=== PATIENT | male | born 1960 | race Caucasian/White ===

== ENCOUNTER 2017-04-21 21:23 | Emergency (ER) | payer SELFPAY ==
[~2017-04-21] VITALS: Ht 167.6 cm; Wt 86.6 kg
[2017-04-21 21:27] VITALS: BP 142/94
== END 2017-04-21 22:10 | disposition home or self-care (01) ==
LOC: ED 21:48
DX: F32.9 Major depressive disorder, single episode, unspecified (principal)
CPT/HCPCS: 99284

== ENCOUNTER 2017-07-19 02:01 | Emergency (ER) | payer SELFPAY ==
[~2017-07-19] VITALS: Ht 167.6 cm; Wt 88.2 kg
[2017-07-19 02:34] VITALS: BP 131/74
== END 2017-07-19 02:36 | disposition home or self-care (01) ==
LOC: ED 02:22
DX: J20.8 Acute bronchitis due to other specified organisms (principal)
CPT/HCPCS: 99283

== ENCOUNTER 2018-07-19 14:41 | Emergency (ER) | payer MEDICAID ==
[~2018-07-19] VITALS: Ht 170.2 cm; Wt 81.6 kg
[~2018-07-19 14:41] MED LIST: NAPR-685 PO
[2018-07-19 14:47] VITALS: BP 126/95
== END 2018-07-19 15:57 | disposition home or self-care (01) ==
LOC: ED 14:56
DX: J06.9 Acute upper respiratory infection, unspecified (principal); Z87.891 Personal history of nicotine dependence
CPT/HCPCS: 71046; 99283

== ENCOUNTER 2018-11-14 19:14 | Emergency (ER) | payer MEDICAID ==
[~2018-11-14] VITALS: Ht 167.6 cm; Wt 76.6 kg
[2018-11-14 19:18] VITALS: BP 129/84
--- NOTE | 2018-11-14 19:42 | NUR ---
pt to room with c/o redness to right eye, rigth inner eye red, pt states he did not feel any irritation till he looked in mirror
[2018-11-14] MEDS ORDERED: FLUORESCEIN OPHTHALMIC 1 MG STRIP ONE (20:01)
== END 2018-11-14 20:42 | disposition home or self-care (01) ==
LOC: ED 20:15
DX: H11.31 Conjunctival hemorrhage, right eye (principal); F32.9 Major depressive disorder, single episode, unspecified
CPT/HCPCS: 99281; 99282

== ENCOUNTER 2018-11-20 08:57 | Inpatient (IN) | payer MEDICAID ==
[~2018-11-20] VITALS: Ht 170.2 cm; Wt 78.4 kg
[2018-11-20] MEDS ORDERED: CLINDAMYCIN PMX 600MG/50ML 50 ML IVPB ONE (09:30)
[2018-11-20] MEDS ORDERED: SODIUM CHLORIDE FLUSH 10ML SYR IVF ONE (09:30)
[2018-11-20] MEDS ORDERED: CLINDAMYCIN PMX 600MG/50ML 50 ML ONE (09:49)
[2018-11-20 10:05] LABS: MEAN CORPUSCULAR HEMOGLOBIN 29.8 pg (27.5-34.5); MEAN CORPUSCULAR HGB CONC 34.1 g/dL (33.2-36.2); MEAN CORPUSCULAR VOLUME 87.3 fL (81-97); MEAN PLATELET VOLUME 7.8 fL (7.4-10.4); PLATELET COUNT 285 x10^3/uL (130-400); RED BLOOD COUNT 4.62 x10^6/uL (4.38-5.82); RED CELL DISTRIBUTION WIDTH 15.2 % (9.4-14.8)
[2018-11-20 10:17] LABS: ALBUMIN 3.6 g/dL (3.4-5.0); ANION GAP 8 mmol/L (5-15); CALCIUM 8.3 mg/dL (8.5-10.1); CHLORIDE 107 mmol/L (98-107)
[2018-11-20 10:21] LABS: ALANINE AMINOTRANSFERASE 23 U/L (12-78); ALKALINE PHOSPHATASE 90 U/L (45-117); BILIRUBIN,TOTAL 0.8 mg/dL (0.2-1.0); CREATININE 0.89 mg/dL (0.7-1.3); TOTAL PROTEIN 7.4 g/dL (6.4-8.2)
[2018-11-20 10:28] LABS: BASOPHILS # (AUTO) 0.06 x10^3/uL (0-0.1); BASOPHILS % (AUTO) 0 % (0-1); EOSINOPHILS # (AUTO) 0.03 x10^3/uL (0-0.4); EOSINOPHILS % (AUTO) 0 % (1-7); LYMPHOCYTES % (AUTO) 7 % (22-44); MD SCAN; MONOCYTES # (AUTO) 0.87 x10^3/uL (0.2-0.8); MONOCYTES % (AUTO) 4 % (2-9); NEUTROPHILS # (AUTO) 17.79 x10^3/uL (1.8-6.8); NEUTROPHILS % (AUTO) 88 % (42-75)
[2018-11-20] MEDS ORDERED: LIDOCAINE-MPF 1%, 5ML INFIL ONE (10:30)
[2018-11-20] MEDS ORDERED: LIDOCAINE-MPF 1%, 5ML ONE (10:48)
[2018-11-20] MEDS ORDERED: SODIUM CHLORIDE FLUSH 10ML SYR IVF PRN (11:00)
--- NOTE | 2018-11-20 12:00 | NUR ---
Sbar report over phone to cruz alcaraz.
[2018-11-20 13:36] VITALS: BP 125/84
[2018-11-20] MEDS ORDERED: ACETAMINOPHEN 325 MG TABLET PO PRN (14:00)
[2018-11-20] MEDS ORDERED: GABAPENTIN 300 MG CAPSULE PO PRN (14:00)
[2018-11-20] MEDS ORDERED: ONDANSETRON 2MG/ML, 2ML IVPush PRN (14:00)
[2018-11-20] MEDS ORDERED: LABETALOL 5MG/ML, 20ML IVPush PRN (14:00)
[2018-11-20] MEDS ORDERED: morphine SULFATE 10 MG/ML, 1ML IVPush PRN (14:00)
[2018-11-20] MEDS: SODIUM CHLORIDE 0.9% 1,000 ML IV SCH ×6 (14:00→23:00)
[2018-11-20 14:07] LABS: HCT (SEDRATE) 39.7 % (39.2-51.8)
[2018-11-20 14:53] LABS: HEMOGLOBIN A1C 5.7 % (4.2-6.3)
[2018-11-20] MEDS: AMPICILLIN/SULBACTAM 1,500 MG in SODIUM CHLORIDE 0.9% 50 ML IV SCH ×2 (15:10→21:54)
[2018-11-20] MEDS: ENOXAPARIN 40 MG/0.4 ML SQ SCH (15:23)
[2018-11-20] MEDS: DOXYCYCLINE 100 MG in DEXTROSE 5% 250 ML IV SCH (15:23)
[2018-11-20 18:40] VITALS: BP 117/80
[2018-11-20 21:55] VITALS: BP 119/74
[2018-11-21 01:01] VITALS: BP_SYST 132; BP_SYST 32; BP_DIAS 81
[2018-11-21] MEDS: AMPICILLIN/SULBACTAM 1,500 MG in SODIUM CHLORIDE 0.9% 50 ML IV SCH ×4 (03:14→20:54)
[2018-11-21] MEDS: SODIUM CHLORIDE 0.9% 1,000 ML IV SCH ×3 (03:15→20:55)
[2018-11-21] MEDS: DOXYCYCLINE 100 MG in DEXTROSE 5% 250 ML IV SCH ×2 (04:18→16:28)
[2018-11-21 05:02] LABS: MEAN CORPUSCULAR HEMOGLOBIN 28.6 pg (27.5-34.5); MEAN CORPUSCULAR HGB CONC 32.6 g/dL (33.2-36.2); MEAN CORPUSCULAR VOLUME 87.6 fL (81-97); MEAN PLATELET VOLUME 7.8 fL (7.4-10.4); PLATELET COUNT 267 x10^3/uL (130-400); RED BLOOD COUNT 4.49 x10^6/uL (4.38-5.82); RED CELL DISTRIBUTION WIDTH 15.9 % (9.4-14.8)
[2018-11-21 05:12] LABS: ALBUMIN 2.8 g/dL (3.4-5.0); ANION GAP 4 mmol/L (5-15); CALCIUM 7.9 mg/dL (8.5-10.1); CHLORIDE 112 mmol/L (98-107)
[2018-11-21 05:15] LABS: ALANINE AMINOTRANSFERASE 22 U/L (12-78); ALKALINE PHOSPHATASE 91 U/L (45-117); BILIRUBIN,TOTAL 0.7 mg/dL (0.2-1.0); CREATININE 0.88 mg/dL (0.7-1.3); TOTAL PROTEIN 6.4 g/dL (6.4-8.2)
[2018-11-21 06:29] LABS: BASOPHILS # (AUTO) 0.01 x10^3/uL (0-0.1); BASOPHILS % (AUTO) 0 % (0-1); EOSINOPHILS % (AUTO) 1 % (1-7); LYMPHOCYTES # (AUTO) 1.34 x10^3/uL (1-3.4); LYMPHOCYTES % (AUTO) 10 % (22-44); MD SCAN; MONOCYTES # (AUTO) 0.43 x10^3/uL (0.2-0.8); MONOCYTES % (AUTO) 3 % (2-9); NEUTROPHILS # (AUTO) 12.02 x10^3/uL (1.8-6.8); NEUTROPHILS % (AUTO) 87 % (42-75)
[2018-11-21 08:45] VITALS: BP 134/93
[2018-11-21] MEDS: ENOXAPARIN 40 MG/0.4 ML SQ SCH (13:28)
[2018-11-21 13:38] VITALS: BP 131/82
[2018-11-21 20:59] VITALS: BP 125/71
[2018-11-22 02:29] VITALS: BP 129/80
[2018-11-22] MEDS: AMPICILLIN/SULBACTAM 1,500 MG in SODIUM CHLORIDE 0.9% 50 ML IV SCH ×4 (02:41→22:22)
[2018-11-22] MEDS: DOXYCYCLINE 100 MG in DEXTROSE 5% 250 ML IV SCH ×2 (03:56→15:48)
[2018-11-22 06:05] LABS: BASOPHILS # (AUTO) 0.03 x10^3/uL (0-0.1); BASOPHILS % (AUTO) 0 % (0-1); EOSINOPHILS # (AUTO) 0.13 x10^3/uL (0-0.4); EOSINOPHILS % (AUTO) 1 % (1-7); LYMPHOCYTES # (AUTO) 1.31 x10^3/uL (1-3.4); LYMPHOCYTES % (AUTO) 13 % (22-44); MD NO; MEAN CORPUSCULAR HEMOGLOBIN 29.2 pg (27.5-34.5); MEAN CORPUSCULAR HGB CONC 33.5 g/dL (33.2-36.2); MEAN CORPUSCULAR VOLUME 87.1 fL (81-97); MEAN PLATELET VOLUME 7.5 fL (7.4-10.4); MONOCYTES # (AUTO) 0.95 x10^3/uL (0.2-0.8); MONOCYTES % (AUTO) 10 % (2-9); NEUTROPHILS % (AUTO) 75 % (42-75); PLATELET COUNT 290 x10^3/uL (130-400); RED BLOOD COUNT 4.57 x10^6/uL (4.38-5.82); RED CELL DISTRIBUTION WIDTH 15.3 % (9.4-14.8)
[2018-11-22 07:10] VITALS: BP 134/90
[2018-11-22] MEDS: ENOXAPARIN 40 MG/0.4 ML SQ SCH (13:31)
[2018-11-22 13:41] VITALS: BP 127/86
[2018-11-22 21:06] VITALS: BP 138/89
[2018-11-23] MEDS: DOXYCYCLINE 100 MG in DEXTROSE 5% 250 ML IV SCH (03:24)
[2018-11-23 03:32] VITALS: BP 119/84
[2018-11-23] MEDS: AMPICILLIN/SULBACTAM 1,500 MG in SODIUM CHLORIDE 0.9% 50 ML IV SCH ×2 (05:26→11:13)
[2018-11-23 07:05] VITALS: BP 122/84
[2018-11-23] MEDS: ENOXAPARIN 40 MG/0.4 ML SQ SCH (14:21)
[2018-11-23 14:22] VITALS: BP 113/69
[2018-11-23] MEDS ORDERED: VANCOMYCIN PER PHARMACY MC PRN (15:00)
[2018-11-23] MEDS ORDERED: PHARMACOKINETIC MONITORING MC PRN (15:30)
[2018-11-23] MEDS: VANCOMYCIN 1,600 MG in SODIUM CHLORIDE 0.9% 250 ML IV SCH (15:32)
[2018-11-23 19:25] VITALS: BP 122/74
[2018-11-24 00:29] VITALS: BP 116/79
[2018-11-24] MEDS: VANCOMYCIN 1,600 MG in SODIUM CHLORIDE 0.9% 250 ML IV SCH (03:28)
[2018-11-24 05:38] LABS: BASOPHILS # (AUTO) 0.04 x10^3/uL (0-0.1); BASOPHILS % (AUTO) 1 % (0-1); EOSINOPHILS # (AUTO) 0.14 x10^3/uL (0-0.4); EOSINOPHILS % (AUTO) 2 % (1-7); LYMPHOCYTES # (AUTO) 2.06 x10^3/uL (1-3.4); LYMPHOCYTES % (AUTO) 25 % (22-44); MD NO; MEAN CORPUSCULAR HGB CONC 33.1 g/dL (33.2-36.2); MEAN CORPUSCULAR VOLUME 87.7 fL (81-97); MEAN PLATELET VOLUME 7.4 fL (7.4-10.4); MONOCYTES # (AUTO) 0.92 x10^3/uL (0.2-0.8); MONOCYTES % (AUTO) 11 % (2-9); NEUTROPHILS # (AUTO) 5.14 x10^3/uL (1.8-6.8); NEUTROPHILS % (AUTO) 62 % (42-75); PLATELET COUNT 315 x10^3/uL (130-400); RED BLOOD COUNT 4.72 x10^6/uL (4.38-5.82)
[2018-11-24 08:25] VITALS: BP 118/73
[2018-11-24] MEDS ORDERED: GABA300C10 PO (10:42)
[2018-11-24] MEDS ORDERED: SULF1TAB24 PO ×2 (10:43→14:31)
[2018-11-24] MEDS ORDERED: SULFAMETH./TRIMETHOPRIM DS 800MG/160MG TABLET PO SCH (11:00)
[2018-11-24 15:28] VITALS: BP 129/92
== END 2018-11-24 15:40 | disposition home or self-care (01) | DRG 854 ==
LOC: ED 09:21 → EDIP 10:59 → 4NOR 12:36
PROVIDERS: ADMIT Hospitalist; ATTEND Hospitalist
PROC: 0J9M0ZZ Drainage of Left Upper Leg Subcutaneous Tissue and Fascia, Open Approach (ICD-10-PCS; principal; 2018-11-20)
DX: A41.9 Sepsis, unspecified organism (principal); L02.416 Cutaneous abscess of left lower limb; L03.116 Cellulitis of left lower limb; B95.62 Methicillin resistant Staphylococcus aureus infection as the cause of diseases classified elsewhere; E11.9 Type 2 diabetes mellitus without complications; E83.51 Hypocalcemia; F17.200 Nicotine dependence, unspecified, uncomplicated; N40.0 Benign prostatic hyperplasia without lower urinary tract symptoms
CPT/HCPCS: 36415; 80053; 83036; 83605; 85025; 85651; 87040; 87070; 87075; 87077; 87186; 87205; 96365; 96366; 99285; G0378; J1650; J3370; J7060; J0295; J7030; J7050

== ENCOUNTER → 2018-11-26 | Outpatient (CLI) | payer MEDICAID ==
[~2018-11-26] MED LIST changes: +GABA300C10 PO; +SULF1TAB24 PO
== END | disposition home or self-care (01) ==
LOC: WOUND 08:12
PROVIDERS: ATTEND Family Medicine
DX: T81.89XA Other complications of procedures, not elsewhere classified, initial encounter (principal); E11.9 Type 2 diabetes mellitus without complications; Y83.8 Other surgical procedures as the cause of abnormal reaction of the patient, or of later complication, without mention of misadventure at the time of the procedure; Y92.89 Other specified places as the place of occurrence of the external cause
CPT/HCPCS: 99215

== ENCOUNTER → 2018-11-29 | Outpatient (CLI) | payer MEDICAID | END | disposition home or self-care (01) | LOC: WOUND 08:30 | PROVIDERS: ATTEND Internal Medicine | DX: T81.31XD Disruption of external operation (surgical) wound, not elsewhere classified, subsequent encounter (principal); L02.416 Cutaneous abscess of left lower limb; E11.9 Type 2 diabetes mellitus without complications; F17.210 Nicotine dependence, cigarettes, uncomplicated; F32.9 Major depressive disorder, single episode, unspecified; Y83.8 Other surgical procedures as the cause of abnormal reaction of the patient, or of later complication, without mention of misadventure at the time of the procedure | CPT/HCPCS: 99212 ==

== ENCOUNTER → 2018-12-01 | Outpatient (CLI) | payer MEDICAID | END | disposition home or self-care (01) | LOC: WOUND 07:46 | PROVIDERS: ATTEND Internal Medicine | DX: T81.31XD Disruption of external operation (surgical) wound, not elsewhere classified, subsequent encounter (principal); E11.9 Type 2 diabetes mellitus without complications; L03.116 Cellulitis of left lower limb; N40.1 Benign prostatic hyperplasia with lower urinary tract symptoms; F32.9 Major depressive disorder, single episode, unspecified; Y83.8 Other surgical procedures as the cause of abnormal reaction of the patient, or of later complication, without mention of misadventure at the time of the procedure | CPT/HCPCS: 99212 ==

== ENCOUNTER 2018-12-03 08:15 | Outpatient (CLI) | payer MEDICAID | END 2018-12-03 23:59 | disposition home or self-care (01) | LOC: WOUND 08:15 | PROVIDERS: ATTEND Family Medicine | DX: T81.31XD Disruption of external operation (surgical) wound, not elsewhere classified, subsequent encounter (principal); E11.9 Type 2 diabetes mellitus without complications; L03.116 Cellulitis of left lower limb; N40.1 Benign prostatic hyperplasia with lower urinary tract symptoms; F32.9 Major depressive disorder, single episode, unspecified; Y83.8 Other surgical procedures as the cause of abnormal reaction of the patient, or of later complication, without mention of misadventure at the time of the procedure | CPT/HCPCS: 99213 ==

== ENCOUNTER 2019-10-29 14:25 | Emergency (ER) | payer MEDICAID ==
[~2019-10-29] VITALS: Ht 167.6 cm; Wt 96.0 kg
--- NOTE | 2019-10-29 14:29 | NUR ---
PT REFUSING TO TRIAGE AT THIS TIME TO USE BATHROOM
[2019-10-29 14:33] VITALS: BP 146/99
--- NOTE | 2019-10-29 14:53 | NUR ---
PT WAITING IN MAIN LOBBY
[2019-10-29 15:33] LABS: BASOPHILS # (AUTO) 0.03 x10^3/uL (0-0.1); BASOPHILS % (AUTO) 0 % (0-1); EOSINOPHILS # (AUTO) 0.13 x10^3/uL (0-0.4); EOSINOPHILS % (AUTO) 2 % (1-7); LYMPHOCYTES # (AUTO) 2.45 x10^3/uL (1-3.4); LYMPHOCYTES % (AUTO) 32 % (22-44); MD SCAN; MEAN CORPUSCULAR HEMOGLOBIN 29.2 pg (27.5-34.5); MEAN CORPUSCULAR HGB CONC 33.2 g/dL (33.2-36.2); MEAN PLATELET VOLUME 7.3 fL (7.4-10.4); MONOCYTES % (AUTO) 8 % (2-9); NEUTROPHILS # (AUTO) 4.45 x10^3/uL (1.8-6.8); NEUTROPHILS % (AUTO) 58 % (42-75); PLATELET COUNT 250 x10^3/uL (130-400); RED BLOOD COUNT 5.81 x10^6/uL (4.38-5.82); RED CELL DISTRIBUTION WIDTH 13.3 % (9.4-14.8)
[2019-10-29 15:42] LABS: ALBUMIN 4.1 g/dL (3.4-5.0); ANION GAP 3 mmol/L (5-15); CALCIUM 9.5 mg/dL (8.5-10.1); CHLORIDE 105 mmol/L (98-107)
[2019-10-29 15:47] LABS: ALANINE AMINOTRANSFERASE 92 U/L (12-78); ALKALINE PHOSPHATASE 95 U/L (45-117); BILIRUBIN,TOTAL 0.5 mg/dL (0.2-1.0); CREATININE 1.14 mg/dL (0.7-1.3); TOTAL PROTEIN 8.2 g/dL (6.4-8.2); TROPONIN I < 0.015 ng/mL (0.000-0.045)
--- NOTE | 2019-10-29 16:05 | NUR ---
Pt arrives to ed with symptoms of feeling full and sudden weight gain. Pt reports he also feels pressure when walking, and feels sob and not feeling well. pt reports prostate issues as well.
--- NOTE | 2019-10-29 17:03 | NUR ---
Patient/Caregiver given discharge instructions and they have confirmed that they understand the instructions. Patient ambulatory with steady gait.
== END 2019-10-29 17:14 | disposition home or self-care (01) ==
LOC: ED 15:46
DX: R06.00 Dyspnea, unspecified (principal); R63.5 Abnormal weight gain
CPT/HCPCS: 36415; 74022; 80053; 80307; 83690; 84484; 85025; 93005; 99285

== ENCOUNTER 2020-06-03 17:00 | Emergency (ER) | payer MEDICAID ==
[~2020-06-03] VITALS: Ht 167.6 cm; Wt 92.2 kg
--- NOTE | 2020-06-03 17:07 | NUR ---
EKG DONE IN TRIAGE
--- NOTE | 2020-06-03 17:21 | NUR ---
PT C/O COUGH X 2 WEEKS. PT STARTED TO EXPERIENCE SOB YESTERDAY WITH THE FEELING OF SOMETHING STUCK IN HIS THROAT. PT DENIES FEVER OR CHEST PAIN AT THIS TIME. PT STATES HE HAS A HX OF GETTING BRONCHITIS IN THE COLDER MONTHS.
[2020-06-03 17:57] LABS: BASOPHILS % (AUTO) 1 % (0-1); EOSINOPHILS % (AUTO) 1 % (1-7); LYMPHOCYTES % (AUTO) 26 % (22-44); MEAN CORPUSCULAR HEMOGLOBIN 29.2 pg (27.5-34.5); MEAN CORPUSCULAR HGB CONC 33.4 g/dL (33.2-36.2); MEAN PLATELET VOLUME 7.9 fL (7.4-10.4); MONOCYTES % (AUTO) 7 % (2-9); NEUTROPHILS % (AUTO) 65 % (42-75); PLATELET COUNT 250 x10^3/uL (130-400); RED BLOOD COUNT 5.39 x10^6/uL (4.38-5.82); RED CELL DISTRIBUTION WIDTH 13.3 % (9.4-14.8)
[2020-06-03 17:58] LABS: MD NO
[2020-06-03 18:10] LABS: ALBUMIN 3.9 g/dL (3.4-5.0); ANION GAP 5 mmol/L (5-15); CALCIUM 8.7 mg/dL (8.5-10.1); CHLORIDE 106 mmol/L (98-107); CREATININE 1.11 mg/dL (0.7-1.3)
[2020-06-03 18:14] LABS: TROPONIN I < 0.015 ng/mL (0.000-0.045)
--- NOTE | 2020-06-03 18:43 | NUR ---
PT RESTING IN BED. AWAITING FURTHER ORDERS.
[2020-06-03 19:37] VITALS: BP 126/90
== END 2020-06-03 19:44 ==
LOC: ED 18:43
DX: R05 Cough (principal); K21.00 Gastro-esophageal reflux disease with esophagitis, without bleeding; R06.02 Shortness of breath; R07.9 Chest pain, unspecified; R94.31 Abnormal electrocardiogram [ECG] [EKG]; I10 Essential (primary) hypertension; E11.9 Type 2 diabetes mellitus without complications; Z87.891 Personal history of nicotine dependence
CPT/HCPCS: 36415; 71045; 80048; 82040; 84484; 85025; 93005; 99285